=== PATIENT | female | born 1950 | race Caucasian/White ===

== ENCOUNTER 2021-06-12 16:48 | Emergency (ER) | payer MEDICARE, OTHER ==
[2021-06-12 17:07] VITALS: BP 163/98; PULSE 73
--- NOTE | 2021-06-12 17:15 | EDM.PDOC ---
ED HPI GENERAL MEDICAL PROBLEM - General Chief Complaint: Upper Extremity Injury/Pain Stated Complaint: FALL Time Seen by Provider: 06/12/21 17:10 Source of Information: Reports: Patient History Limitations: Reports: No Limitations - History of Present Illness INITIAL COMMENTS - FREE TEXT/NARRATIVE: Patient presents to the ED for fall on a outstretched arm. She states she was walking today and tripped over an rise in the sidewalk. She tried to catch herself but fell forward on her hands. Palms hit the ground and she stopped her forward progress. Nothing else hit the ground. This happened at 11 am. She started to has some mild pain and swelling in the left elbow and decided to go to the clinic. They sent her here. Is on a blood thinner for unknown reason. no head trauma. unsure on her tetanus. no tingling or numbness of the left hand. no other injury. Is right handed. leaving for [place] for winter in less than 2 days. Onset: Today Location: Reports: Upper Extremity, Left Associated Symptoms: Reports: No Other Symptoms Left Elbow Pain Score (Numeric/FACES): 5 - Related Data Allergies Allergy/AdvReac Type Severity Reaction Status Date / Time No Known Allergies Allergy Verified 06/12/21 17:22 Home Meds: Home Meds Hydrocodone/Acetaminophen [HYDROcodone-Acetaminophen 5-325 MG] 1 each PO Q6H PRN #30 tab 06/12/21 [Rx] Past Medical History Cardiovascular History: Reports: Afib (on blood thinner), High Cholesterol, Hypertension Psychiatric History: Reports: Depression Endocrine/Metabolic History: Reports: Hypothyroidism Hematologic History: Reports: Anemia, Iron Deficiency - Past Surgical History HEENT Surgical History: Reports: Tonsillectomy GI Surgical History: Reports: Colonoscopy Female Surgical History: Reports: Breast Biopsy, Hysterectomy, Oophorectomy, Tubal Ligation Social & Family History - Tobacco Use Tobacco Use Status *Q: Never Tobacco User - Recreational Drug Use Recreational Drug Use: No Drug Use in Last 12 Months: No Review of Systems - Review of Systems Review Of Systems: See Below Constitutional: Reports: No Symptoms Eyes: Reports: No Symptoms Ears: Reports: No Symptoms Nose: Reports: No Symptoms Respiratory: Reports: No Symptoms Cardiovascular: Reports: No Symptoms GI/Abdominal: Reports: No Symptoms Genitourinary: Reports: No Symptoms Musculoskeletal: Reports: No Symptoms, Joint Pain (left elbow) Skin: Reports: Other (abrasions bilateral palms) ED EXAM, GENERAL - Physical Exam Exam: See Below Exam Limited By: No Limitations General Appearance: Alert, WD/WN, No Apparent Distress Eye Exam: Bilateral Eye: EOMI, Normal Inspection, PERRL Nose: Normal Inspection, Normal Mucosa Throat/Mouth: Normal Inspection, Normal Lips, Normal Voice, No Airway Compromise Head: Atraumatic Neck: Normal Inspection Respiratory/Chest: No Respiratory Distress, Lungs Clear, Chest Non-Tender Cardiovascular: Irregularly Irregular GI/Abdominal: Normal Bowel Sounds, Soft Extremities: Limited Range of Motion (left elbow with end limits of extension and flexion. normal sensation distally and pulses intact. caprefill less than 3 seconds. limited supination due to discomfort. No other injury) Neurological: Alert, Oriented Course - Vital Signs Last Recorded V/S: Last Vital Signs Temp 37.0 C 06/12/21 16:58 Pulse 73 06/12/21 16:58 Resp 16 06/12/21 16:58 BP 163/98 H 06/12/21 16:58 Pulse Ox 97 06/12/21 16:58 - Orders/Labs/Meds Orders: Active Orders 24 hr Category Date Time Status Vaccine to be Administered/Admin Charge [RC] ASDIRECTED Care 06/12/21 17:10 Active Elbow Min 3V Lt [CR] Stat Exams 06/12/21 17:09 Ordered Durable Medical Equipment for Discharge [DME for Oth 06/12/21 17:43 Ordered Discharge] [COMM] Stat Meds: Medications Discontinued Medications Generic Name Dose Route Start Last Admin Trade Name Freq PRN Reason Stop Dose Admin Diphtheria/Tetanus/Acell Pertussis 0.5 ml 06/12/21 17:10 06/12/21 17:45 Diphtheria,Pertussis(Acell),Tetanus Vaccine 0.5 Ml Syringe IM 06/12/21 17:11 0.5 ml .ONCE ONE Administration - Radiology Interpretation Free Text/Narrative:: impacted left radial neck fracture and fracture of the coranoid process. interpreted by radiology - Re-Assessments/Exams Free Text/Narrative Re-Assessment/Exam: 06/12/21 discussed option with the patient. She has had minimal pain, has been moving the arm all day and has to fly in two days. prefers to have a sling and will not use it versus a posterior splint. Discussed at length concern for compartment syndrome and she is aware of the signs and symptoms and need to return. ADvised to not take nsaids with her blood thinner. if tylenol does not help, will take hydrocodone. Given disc with images and will call to schedule an appointment next week with [place] where she is flying to on 06/14 given tetanus booster as last one was 2011 Departure - Departure Time of Disposition: 17:47 Disposition: Home, Self-Care 01 Condition: Good Clinical Impression: Radial head fracture - Discharge Information *PRESCRIPTION DRUG MONITORING PROGRAM REVIEWED*: No *COPY OF PRESCRIPTION DRUG MONITORING REPORT IN PATIENT MARGO: No Prescriptions: Hydrocodone/Acetaminophen [HYDROcodone-Acetaminophen 5-325 MG] 1 each PO Q6H PRN #30 tab PRN Reason: Pain Instructions: Radial Head Fracture, [id number], Radial Head Elbow Fracture With Rehab-SportsMed, Acute Compartment Syndrome Forms: ED Department Discharge Additional Instructions: ice the area, limit rotation of the left arm. Wear the sling at all times if possible. make sure the hand is elevated in the sling. Take your arm out of the sling several times a day for flexion and extension, but not rotation. You were given a copy of your films. Call and set up orthopedic referral for DISPLACED RADIAL HEAD FRACTURE within seven days. This may need surgery. Return to an emergency room for increasing pain out of proportion and not taken care of by pain medications, numbness of the arm, increased firmness of the tissue of the forearm, pale color of the hand. These are things that are signs of possible compartment syndome. You are given information on this rare but possible complication. Sepsis Event Note (ED) - Focused Exam Vital Signs: Vital Signs Temp Pulse Resp BP Pulse Ox 06/12/21 16:58 37.0 C 73 16 163/98 H 97 - My Orders Last 24 Hours: My Active Orders 06/12/21 17:09 Elbow Min 3V Lt [CR] Stat 06/12/21 17:10 Vaccine to be Administered/Admin Charge [RC] ASDIRECTED 06/12/21 17:43 Durable Medical Equipment for Discharge [DME for Discharge] [COMM] Stat - Assessment/Plan Last 24 Hours: My Active Orders 06/12/21 17:09 Elbow Min 3V Lt [CR] Stat 06/12/21 17:10 Vaccine to be Administered/Admin Charge [RC] ASDIRECTED 06/12/21 17:43 Durable Medical Equipment for Discharge [DME for Discharge] [COMM] Stat
[2021-06-12] MEDS: Diphtheria,Pertussis(Acell),Tetanus Vaccine 0.5 ML Syringe IM ONE (17:45)
--- NOTE | 2021-06-12 18:03 | CR ---
[id number] RAD/RAD Elbow Left 3V Min EXAM: RAD Elbow Left 3V Min CLINICAL DATA: TRAUMA COMPARISON: NO PREVIOUS SIMILAR EXAM IS AVAILABLE. FINDINGS: There is an impacted left radial neck fracture There is a fracture of the coronoid process.. IMPRESSION: COMPLEX LEFT ELBOW FRACTURES INCLUDING RADIAL HEAD AND NECK AND CORONOID PROCESS OF THE ULNAR NOTCH Jose Colvin MD 06/12/21 [id number] Thank you for allowing us to participate in the care of your patient.
== END 2021-06-12 18:12 | disposition home or self-care (01) ==
LOC: VM.ED 16:48
DX: S52.122A Displaced fracture of head of left radius, initial encounter for closed fracture (principal); I10 Essential (primary) hypertension; Z23 Encounter for immunization; W01.0XXA Fall on same level from slipping, tripping and stumbling without subsequent striking against object, initial encounter; Y92.480 Sidewalk as the place of occurrence of the external cause
CPT/HCPCS: 73080-LT; 90471; 90715; 99283; 99283-25

== ENCOUNTER 2023-03-18 12:12 | Emergency (ER) | payer MEDICARE, OTHER | END 2023-03-18 12:45 | disposition home or self-care (01) | LOC: VM.ED 12:12 | DX: K91.840 Postprocedural hemorrhage of a digestive system organ or structure following a digestive system procedure (principal); E78.00 Pure hypercholesterolemia, unspecified; I10 Essential (primary) hypertension; E03.9 Hypothyroidism, unspecified; Z79.899 Other long term (current) drug therapy; Z79.01 Long term (current) use of anticoagulants; Z79.82 Long term (current) use of aspirin | CPT/HCPCS: 99283 ==

== ENCOUNTER 2023-03-27 20:17 | Emergency (ER) | payer MEDICARE, OTHER ==
[2023-03-27] MEDS: traMADol 50 MG Tab PO ONE (20:25)
[2023-03-27] MEDS: Orphenadrine 60 MG/2 ML Inj IM ONE (20:26)
[2023-03-27] MEDS: Take Home: traMADol 50 MG, 4 Tab Pack PO ONE (22:09)
== END 2023-03-27 22:15 | disposition home or self-care (01) ==
LOC: VM.ED 20:17
DX: M79.651 Pain in right thigh (principal); I10 Essential (primary) hypertension; E78.00 Pure hypercholesterolemia, unspecified; I48.91 Unspecified atrial fibrillation; E03.9 Hypothyroidism, unspecified; D64.9 Anemia, unspecified; Z79.82 Long term (current) use of aspirin; Z79.01 Long term (current) use of anticoagulants; Z79.899 Other long term (current) drug therapy
CPT/HCPCS: 72100; 96372; 99283; A9270-GY; J2360